=== PATIENT | female | born 1985 | race Caucasian/White ===

== ENCOUNTER 2017-04-14 13:56 | Emergency (ER) | payer MEDICAID ==
[~2017-04-14] VITALS: Ht 160 cm; Wt 99.8 kg
--- NOTE | ~2017-04-14 | EKG ---
[place], [place] ELECTROCARDIOGRAM REPORT NAME: TANMAY GROVE UNIT #: [id number] ROOM: DOCTOR: JAG PATEL MD BIRTHDATE: [birth year] DOS: 04/14/2017 TIME: 1402 hours. FINDINGS: 1. Sinus tachycardia at 121 beats per minute. 2. Left ventricular hypertrophy. 3. Nonspecific T wave changes in lateral chest leads. 4. An abnormal ECG. 5. No previous tracing is available for comparison. JAG PATEL MD CM:EKGRPT:ELECTROCARDIOGRAM REPORT [id number] JAG PATEL MD
--- NOTE | ~2017-04-14 | EKG ---
[place], [place] ELECTROCARDIOGRAM REPORT NAME: TANMAY GROVE UNIT #: [id number] ROOM: DOCTOR: JAG PATEL MD BIRTHDATE: [birth year] DOS: 04/14/2017 TIME: 1634 hours. IMPRESSION: 1. Normal sinus rhythm at 87 beats per minute. 2. The tracing is normal. 3. No previous tracing is available for comparison. JAG PATEL MD CM:EKGRPT:ELECTROCARDIOGRAM REPORT 1143 1239 JAG PATEL MD
[~2017-04-14 13:56] MED LIST: MOTRIN800 MG PO
[2017-04-14] MEDS ORDERED: TOPIRAMATE25 M3 PO (14:09)
[2017-04-14] MEDS ORDERED: NEURONTIN300 MG PO (14:10)
[2017-04-14] MEDS ORDERED: PREDNISONE20 M1 PO (14:10)
[2017-04-14] MEDS ORDERED: DOXYCYCLINE100 M3 PO (14:10)
[2017-04-14 14:43] LABS: BASO % 0.2 % (0.0-1.0); HEMATOCRIT 41.8 % (37.0-47.0); HEMOGLOBIN 13.4 g/dl (12.0-16.0); LYMPH # 1.7 10*3/uL (1.3-4.4); LYMPH % 16.4 % (27.0-41.0); MEAN CELL VOLUME 81.8 fl (81.0-99.0); MEAN CORPUSCULAR HGB 26.2 pg (27.0-31.0); MEAN CORPUSCULAR HGB CONC 32.1 g/dl (33.0-37.0); MEAN PLATELET VOLUME 10.1 fl (9.6-12.3); MONO # 0.2 10*3/uL (0.1-1.0); MONO % 1.7 % (3.0-9.0); NEUT # 8.4 10*3/uL (2.3-7.9); NEUT % 80.7 % (47.0-73.0); PLATELET COUNT AUTOMATED 408 10*3/uL (130-400); RED BLOOD COUNT 5.11 10*6/uL (4.10-5.10); RED CELL DISTRI WIDTH 13.8 % (0-14.5); WHITE BLOOD COUNT 10.4 10*3/uL (4.8-10.8)
[2017-04-14 14:55] LABS: ACT PARTIAL THROMBO TIME 29.6 SECONDS (20.8-31.5)
[2017-04-14 15:01] LABS: ALBUMIN 3.9 gm/dl (3.1-4.5); ALKALINE PHOSPHATASE 147 U/L (45-117); BUN 10 mg/dl (7-24); CHLORIDE 109 mmol/L (98-107); CREATININE 0.96 mg/dL (0.55-1.02); POTASSIUM 3.8 mmol/L (3.5-5.1); SGOT/AST 20 IU/L (3-35); SGPT/ALT 45 U/L (12-78); SODIUM 141 mmol/L (136-145); TOTAL PROTEIN 7.8 gm/dL (6.4-8.2)
[2017-04-14 15:06] LABS: TROPONIN I < 0.015 ng/ml (<0.045)
[2017-04-14] MEDS ORDERED: ROBITUSSIN DM 105 ML PO (16:52)
[2017-04-14] MEDS ORDERED: PROAIR HFA8.5 GM INH (16:52)
== END 2017-04-14 17:22 | disposition home or self-care (01) ==
LOC: ED 13:56
PROVIDERS: Emergency Medicine
DX: J20.9 Acute bronchitis, unspecified (principal); R03.0 Elevated blood-pressure reading, without diagnosis of hypertension; F17.200 Nicotine dependence, unspecified, uncomplicated; Z88.8 Allergy status to other drugs, medicaments and biological substances; Z79.899 Other long term (current) drug therapy

== ENCOUNTER 2017-09-27 03:10 | Emergency (ER) | payer MEDICAID ==
[~2017-09-27] VITALS: Ht 162.5 cm; Wt 58.5 kg
[~2017-09-27 03:10] MED LIST changes: +DOXYCYCLINE100 M3 PO; +NEURONTIN300 MG PO; +PREDNISONE20 M1 PO; +PROAIR HFA8.5 GM INH; +ROBITUSSIN DM 105 ML PO; +TOPIRAMATE25 M3 PO
[2017-09-27] MEDS ORDERED: CORTISPORIN SUS10 ML OT (03:44)
[2017-09-27] MEDS ORDERED: ULTRAM50 MG PO (03:44)
[2017-09-27] MEDS ORDERED: LEVOFLOXACIN500 MG PO (03:44)
== END 2017-09-27 03:54 | disposition home or self-care (01) ==
LOC: ED 03:10
DX: H60.91 Unspecified otitis externa, right ear (principal); Z88.8 Allergy status to other drugs, medicaments and biological substances

== ENCOUNTER → 2018-06-01 | Outpatient (CLI) | payer OTHER ==
[~2018-06-01] MED LIST changes: +CORTISPORIN SUS10 ML OT; +IBUPROFEN600 MG PO; +LEVOFLOXACIN500 MG PO; +ULTRAM50 MG PO
== END | disposition home or self-care (01) ==
LOC: US 05-18 13:30
DX: N93.9 Abnormal uterine and vaginal bleeding, unspecified (principal)

== ENCOUNTER 2018-10-05 12:20 | Emergency (ER) | payer OTHER ==
[~2018-10-05] VITALS: Ht 162.5 cm; Wt 108.9 kg
[~2018-10-05 12:20] MED LIST changes: -IBUPROFEN600 MG PO
[2018-10-05] MEDS ORDERED: IBUPROFEN600 MG PO (14:49)
== END 2018-10-05 14:54 | disposition home or self-care (01) ==
LOC: ED 12:20
DX: S46.912A Strain of unspecified muscle, fascia and tendon at shoulder and upper arm level, left arm, initial encounter (principal); Z88.8 Allergy status to other drugs, medicaments and biological substances; W01.0XXA Fall on same level from slipping, tripping and stumbling without subsequent striking against object, initial encounter; Y93.89 Activity, other specified; Y92.89 Other specified places as the place of occurrence of the external cause; Y99.8 Other external cause status

== ENCOUNTER 2019-03-18 19:05 | Emergency (ER) | payer OTHER ==
[~2019-03-18] VITALS: Ht 162.5 cm; Wt 99.3 kg
[~2019-03-18 19:05] MED LIST changes: +IBUPROFEN600 MG PO
[2019-03-18 19:23] LABS: BILIRUBIN NEGATIVE (NEGATIVE); BLOOD NEGATIVE (NEGATIVE); CLARITY CLEAR (CLEAR); COLOR YELLOW (YELLOW); GLUCOSE NEGATIVE (NEGATIVE); KETONE NEGATIVE (NEGATIVE); LEUKO ESTERASE TRACE (NEGATIVE); NITRITE NEGATIVE (NEGATIVE); SPECIFIC GRAVITY 1.015 (1.005-1.030); UROBILINOGEN 0.2 E.U./dl (0.2-1.0)
[2019-03-18 19:32] LABS: BACTERIA 2+; EPITHELIAL CELLS 51-100
== END 2019-03-18 20:15 | disposition home or self-care (01) ==
LOC: ED 19:05
PROVIDERS: Emergency Medicine Emergency Medical Services
DX: O9A.311 Physical abuse complicating pregnancy, first trimester (principal); R10.10 Upper abdominal pain, unspecified; M54.5 Low back pain; R10.2 Pelvic and perineal pain; O99.351 Diseases of the nervous system complicating pregnancy, first trimester; G43.909 Migraine, unspecified, not intractable, without status migrainosus; Z3A.08 8 weeks gestation of pregnancy; Z88.8 Allergy status to other drugs, medicaments and biological substances; Z79.899 Other long term (current) drug therapy; Z79.2 Long term (current) use of antibiotics; Y07.499 Other family member, perpetrator of maltreatment and neglect

== ENCOUNTER 2019-09-14 13:16 | Emergency (ER) | payer OTHER ==
[~2019-09-14] VITALS: Ht 162.5 cm; Wt 100.2 kg
[2019-09-14 17:34] LABS: CLARITY SL CLOUDY (CLEAR); COLOR YELLOW (YELLOW)
[2019-09-14 17:35] LABS: BILIRUBIN NEGATIVE (NEGATIVE); BLOOD 2+ (NEGATIVE); GLUCOSE NEGATIVE (NEGATIVE); KETONE 3+ (NEGATIVE); LEUKO ESTERASE NEGATIVE (NEGATIVE); NITRITE NEGATIVE (NEGATIVE); PH 6.5 (5.0-9.0); UROBILINOGEN 0.2 E.U./dl (0.2-1.0)
[2019-09-14 17:36] LABS: BACTERIA 1+; MUCOUS 2+; RBC 41-50 rbc/hpf (0-2); WBC 0-2 wbc/hpf (0-5)
[2019-09-14] MEDS ORDERED: CEPHALEXIN500 M1 PO (17:39)
== END 2019-09-14 18:01 | disposition home or self-care (01) ==
LOC: ED 13:16
PROVIDERS: Nurse Practitioner Family
DX: O26.893 Other specified pregnancy related conditions, third trimester (principal); O9A.213 Injury, poisoning and certain other consequences of external causes complicating pregnancy, third trimester; S00.83XA Contusion of other part of head, initial encounter; S60.221A Contusion of right hand, initial encounter; R82.71 Bacteriuria; Z88.8 Allergy status to other drugs, medicaments and biological substances; Z79.899 Other long term (current) drug therapy; Z3A.34 34 weeks gestation of pregnancy; Y08.89XA Assault by other specified means, initial encounter; Y93.89 Activity, other specified; Y92.89 Other specified places as the place of occurrence of the external cause; Y99.8 Other external cause status

== ENCOUNTER 2019-10-27 21:59 | Emergency (ER) | payer OTHER ==
[~2019-10-27] VITALS: Ht 162.5 cm; Wt 92.6 kg
[~2019-10-27 21:59] MED LIST changes: +CEPHALEXIN500 M1 PO
[2019-10-27] MEDS ORDERED: SERTRALINE HYDR50 MG PO (22:27)
[2019-10-27 22:58] LABS: BASO # 0.1 10*3/uL (0.0-0.1); BASO % 0.5 % (0.0-1.0); EOS # 0.1 10*3/uL (0.0-0.4); EOS % 0.8 % (1.0-4.0); HEMATOCRIT 31.1 % (37.0-47.0); LYMPH # 3.1 10*3/uL (1.3-4.4); LYMPH % 21.4 % (27.0-41.0); MEAN CELL VOLUME 83.8 fl (81.0-99.0); MEAN CORPUSCULAR HGB 25.6 pg (27.0-31.0); MEAN CORPUSCULAR HGB CONC 30.5 g/dl (33.0-37.0); MEAN PLATELET VOLUME 9.3 fl (9.6-12.3); MONO # 0.9 10*3/uL (0.1-1.0); MONO % 6.1 % (3.0-9.0); NEUT # 10.3 10*3/uL (2.3-7.9); PLATELET COUNT AUTOMATED 461 10*3/uL (130-400); RED BLOOD COUNT 3.71 10*6/uL (4.10-5.10); RED CELL DISTRI WIDTH 15.1 % (0-14.5); WHITE BLOOD COUNT 14.4 10*3/uL (4.8-10.8)
[2019-10-27 23:10] LABS: ACT PARTIAL THROMBO TIME 23.2 SECONDS (20.0-32.1)
[2019-10-27 23:19] LABS: ALBUMIN 2.8 gm/dl (3.1-4.5); ALKALINE PHOSPHATASE 124 U/L (45-117); BUN 11 mg/dl (7-24); CHLORIDE 114 mmol/L (98-107); CREATININE 0.87 mg/dL (0.55-1.02); POTASSIUM 3.3 mmol/L (3.5-5.1); SGOT/AST 15 IU/L (3-35); SGPT/ALT 22 U/L (12-78); SODIUM 141 mmol/L (136-145); TOTAL PROTEIN 5.8 gm/dL (6.4-8.2)
[2019-10-28 01:22] LABS: CLARITY CLOUDY (CLEAR); COLOR RED (YELLOW)
[2019-10-28 01:23] LABS: BILIRUBIN NEGATIVE (NEGATIVE); BLOOD 3+ (NEGATIVE); GLUCOSE NEGATIVE (NEGATIVE); KETONE NEGATIVE (NEGATIVE); NITRITE NEGATIVE (NEGATIVE); UROBILINOGEN 0.2 E.U./dl (0.2-1.0)
[2019-10-28 01:24] LABS: LEUKO ESTERASE NEGATIVE (NEGATIVE)
[2019-10-28 01:30] LABS: RBC TNTC rbc/hpf (0-2)
== END 2019-10-28 04:48 | disposition home or self-care (01) ==
LOC: ED 21:59
PROVIDERS: Emergency Medicine Emergency Medical Services
DX: O72.1 Other immediate postpartum hemorrhage (principal); I10 Essential (primary) hypertension; G43.909 Migraine, unspecified, not intractable, without status migrainosus; Z88.8 Allergy status to other drugs, medicaments and biological substances; Z79.899 Other long term (current) drug therapy

== ENCOUNTER → 2024-09-25 | Outpatient (CLI) | payer OTHER ==
[~2024-09-25] MED LIST changes: +SERTRALINE HYDR50 MG PO
[2024-09-25 11:26] LABS: BUN 8 mg/dl (9-23)
[2024-09-25 11:41] LABS: VITAMIN D, 25-HYDROXY 28.5 ng/mL (30-100)
[2024-09-27 04:06] LABS: TB1 Ag VALUE 0.18 IU/mL (.)
== END | disposition home or self-care (01) ==
LOC: LAB 10:03 → US 10:30
PROVIDERS: ATTEND Family Medicine
DX: K80.80 Other cholelithiasis without obstruction (principal); K76.0 Fatty (change of) liver, not elsewhere classified; E55.9 Vitamin D deficiency, unspecified; E61.1 Iron deficiency

== ENCOUNTER 2024-11-20 18:07 | Emergency (ER) | payer OTHER ==
[~2024-11-20] VITALS: Ht 162.5 cm; Wt 112.0 kg
[2024-11-20] MEDS ORDERED: ALPRAZOLAM0.5 M2 PO (19:16)
[2024-11-20] MEDS ORDERED: CYCLOBENZAPRINE5 M3 PO (19:16)
[2024-11-20] MEDS ORDERED: Gelatin Sponge 1 EACH SPON T ONE (19:45)
[2024-11-20] MEDS ORDERED: CEPHALEXIN500 M1 PO (19:55)
== END 2024-11-20 20:02 | disposition home or self-care (01) ==
LOC: ED 18:07
DX: S61.111A Laceration without foreign body of right thumb with damage to nail, initial encounter (principal); Z88.1 Allergy status to other antibiotic agents; Z88.8 Allergy status to other drugs, medicaments and biological substances; W45.8XXA Other foreign body or object entering through skin, initial encounter; Y93.89 Activity, other specified; Y92.89 Other specified places as the place of occurrence of the external cause; Y99.8 Other external cause status